=== PATIENT | female | born 1960 | race Asian ===

== ENCOUNTER 2019-01-26 08:36 | Day surgery (SDC) | payer OTHER | END 2019-01-26 11:00 | disposition home or self-care (01) | LOC: OR 08:36 | PROC: 3E0T3BZ Introduction of Anesthetic Agent into Peripheral Nerves and Plexi, Percutaneous Approach (ICD-10-PCS; principal; 2019-01-26) | PROC: 3E0T33Z Introduction of Anti-inflammatory into Peripheral Nerves and Plexi, Percutaneous Approach (ICD-10-PCS; 2019-01-26) | DX: M47.817 Spondylosis without myelopathy or radiculopathy, lumbosacral region (principal) | CPT/HCPCS: J1100; J2001; J2405; J2704 ==

== ENCOUNTER 2019-02-09 08:34 | Observation (INO) | payer OTHER ==
[~2019-02-09] VITALS: Ht 165.1 cm; Wt 104.9 kg
[2019-02-09 11:18] LABS: PLATELET COUNT 244 K/uL (152-353)
[2019-02-09 11:29] LABS: SODIUM 144 mmol/L (136-145)
[2019-02-09 14:10] LABS: PARTIAL THROMBOPLASTIN TIME 28.5 SECONDS (24.5-33.6)
[2019-02-09] MEDS ORDERED: HYDR5TAB9 PO (15:27)
[2019-02-09] MEDS ORDERED: GABA300C2 PO (15:28)
[2019-02-09] MEDS ORDERED: MOBIC15 MG PO (15:29)
[2019-02-09] MEDS ORDERED: IPRAAER INH (15:33)
[2019-02-09] MEDS ORDERED: LOSA50TA PO (15:35)
[2019-02-09] MEDS ORDERED: SPIRIVA HANDIH18 MCG INH (15:41)
[2019-02-09] MEDS ORDERED: BUDE1AER5 INH (15:42)
[2019-02-09] MEDS ORDERED: CLON1TAB18 PO (15:43)
[2019-02-09] MEDS ORDERED: LATUDA80 MG PO (15:46)
[2019-02-09] MEDS ORDERED: SERT100T PO (15:47)
[2019-02-09] MEDS ORDERED: TRICOR145 M1 PO (15:48)
[2019-02-09] MEDS ORDERED: ROBAXIN500 MG PO (15:50)
[2019-02-09 16:00] VITALS: BP 143/84; TEMP 98.1
[2019-02-09 16:49] VITALS: BP 1433/84; TEMP 98.1; Ht 165.1 cm; Wt 104.9 kg
[2019-02-09 20:00] VITALS: BP 144/85; TEMP 98
[2019-02-09 23:54] VITALS: BP 137/83; TEMP 98.3
[2019-02-10 04:00] VITALS: BP 141/82; TEMP 98.1
[2019-02-10 08:00] VITALS: BP 131/74; TEMP 97.6
[2019-02-10 12:00] VITALS: BP 138/81; TEMP 97.5
[2019-02-10 16:00] VITALS: BP 149/94; TEMP 97.7
== END 2019-02-10 17:00 | disposition home or self-care (01) ==
LOC: OR 08:34 → MED/SURG 12:30
PROVIDERS: Internal Medicine; ADMIT Pain Medicine Interventional Pain Medicine
DX: R07.89 Other chest pain (principal); J44.9 Chronic obstructive pulmonary disease, unspecified; I10 Essential (primary) hypertension; E78.49 Other hyperlipidemia; G89.4 Chronic pain syndrome; F17.210 Nicotine dependence, cigarettes, uncomplicated; R06.02 Shortness of breath
CPT/HCPCS: 80053; 82550; 82553; 83880; 84443; 84484; 85027; 85610; 85651; 85730; 93005; 94640; 94664; 94760; 99220; A9500; G0378; J1100; J2001; J2785

== ENCOUNTER 2019-05-10 08:13 | Day surgery (SDC) | payer OTHER ==
[~2019-05-10] VITALS: Ht 30.5 cm; Wt 0.5 kg
[~2019-05-10 08:13] MED LIST: BUDE1AER5 INH; CLON1TAB18 PO; GABA300C2 PO; HYDR5TAB9 PO; IPRAAER INH; LATUDA80 MG PO; LOSA50TA PO; MOBIC15 MG PO; ROBAXIN500 MG PO; SERT100T PO; SPIRIVA HANDIH18 MCG INH; TRICOR145 M1 PO
[2019-05-10 08:45] LABS: PLATELET COUNT 288 K/uL (152-353)
[2019-05-10 09:35] LABS: POTASSIUM 3.9 mmol/L (3.6-5.2)
== END 2019-05-10 10:52 | disposition home or self-care (01) ==
LOC: OR 08:13
PROVIDERS: Pain Medicine Interventional Pain Medicine
PROC: 3E0T3BZ Introduction of Anesthetic Agent into Peripheral Nerves and Plexi, Percutaneous Approach (ICD-10-PCS; principal; 2019-05-10)
PROC: 3E0T33Z Introduction of Anti-inflammatory into Peripheral Nerves and Plexi, Percutaneous Approach (ICD-10-PCS; 2019-05-10)
PROC: BR16YZZ Fluoroscopy of Lumbar Facet Joint(s) using Other Contrast (ICD-10-PCS; 2019-05-10)
DX: M47.816 Spondylosis without myelopathy or radiculopathy, lumbar region (principal)
CPT/HCPCS: 80053; 85027; J1100; J2001; J2250; J2405; J2704; J3490

== ENCOUNTER 2019-05-12 10:45 | Outpatient (CLI) | payer OTHER | END 2019-05-12 22:30 | LOC: MRI 10:45 | DX: M54.12 Radiculopathy, cervical region (principal) ==

== ENCOUNTER 2019-05-17 12:51 | Outpatient (CLI) | payer OTHER | END 2019-05-17 22:58 | disposition home or self-care (01) | LOC: RESP 12:51 | DX: G56.03 Carpal tunnel syndrome, bilateral upper limbs (principal); G56.21 Lesion of ulnar nerve, right upper limb; G60.8 Other hereditary and idiopathic neuropathies | CPT/HCPCS: 95885; 95911 ==

== ENCOUNTER 2019-06-21 10:53 | Day surgery (SDC) | payer OTHER ==
[~2019-06-21] VITALS: Ht 157.5 cm; Wt 103.0 kg
== END 2019-06-21 14:50 | disposition home or self-care (01) ==
LOC: OR 10:53
PROC: 3E0T3TZ Introduction of Destructive Agent into Peripheral Nerves and Plexi, Percutaneous Approach (ICD-10-PCS; principal; 2019-06-21)
PROC: BR16YZZ Fluoroscopy of Lumbar Facet Joint(s) using Other Contrast (ICD-10-PCS; 2019-06-21)
DX: M47.816 Spondylosis without myelopathy or radiculopathy, lumbar region (principal)
CPT/HCPCS: J2001

== ENCOUNTER 2019-08-02 08:51 | Day surgery (SDC) | payer OTHER | END 2019-08-02 10:28 | disposition home or self-care (01) | LOC: OR 08:51 | PROC: 3E0T3TZ Introduction of Destructive Agent into Peripheral Nerves and Plexi, Percutaneous Approach (ICD-10-PCS; principal; 2019-08-02) | PROC: BR16YZZ Fluoroscopy of Lumbar Facet Joint(s) using Other Contrast (ICD-10-PCS; 2019-08-02) | DX: M47.816 Spondylosis without myelopathy or radiculopathy, lumbar region (principal) | CPT/HCPCS: J2001 ==

== ENCOUNTER 2019-11-22 08:52 | Day surgery (SDC) | payer OTHER ==
[~2019-11-22] VITALS: Ht 170.2 cm; Wt 104.3 kg
== END 2019-11-22 11:10 | disposition home or self-care (01) ==
LOC: OR 08:52
PROC: 3E0R33Z Introduction of Anti-inflammatory into Spinal Canal, Percutaneous Approach (ICD-10-PCS; principal; 2019-11-22)
PROC: B01BYZZ Fluoroscopy of Spinal Cord using Other Contrast (ICD-10-PCS; 2019-11-22)
DX: M51.16 Intervertebral disc disorders with radiculopathy, lumbar region (principal)
CPT/HCPCS: J1020

== ENCOUNTER 2020-03-06 07:52 | Day surgery (SDC) | payer OTHER ==
[~2020-03-06] VITALS: Ht 170.2 cm; Wt 114.8 kg
== END 2020-03-06 09:47 | disposition home or self-care (01) ==
LOC: OR 07:52
PROC: 3E0R33Z Introduction of Anti-inflammatory into Spinal Canal, Percutaneous Approach (ICD-10-PCS; principal; 2020-03-06)
PROC: B01BYZZ Fluoroscopy of Spinal Cord using Other Contrast (ICD-10-PCS; 2020-03-06)
DX: M51.16 Intervertebral disc disorders with radiculopathy, lumbar region (principal)

== ENCOUNTER 2020-04-17 12:59 | Outpatient (CLI) | payer OTHER ==
[2020-04-17 13:22] LABS: PLATELET COUNT 257 K/uL (152-353)
== END 2020-04-17 23:26 | disposition home or self-care (01) ==
LOC: MRI 12:59
PROVIDERS: Pain Medicine Interventional Pain Medicine
DX: M54.17 Radiculopathy, lumbosacral region (principal)
CPT/HCPCS: 36415; 82550; 82553; 82565; 84520; 85027; 86140; A9576